=== PATIENT | male | born 1960 | race Hispanic/Latino ===

== ENCOUNTER 2019-03-27 05:50 | Day surgery (SDC) | payer MEDICAID ==
[~2019-03-27] VITALS: Ht 167.6 cm; Wt 112.9 kg
[2019-03-27] VITALS (7 sets, daily range): BP systolic 123–132; BP diastolic 65–80
[~2019-03-27 05:50] MED LIST: CABE0.5T2 PO; FURO20TA4 PO; LACT10SO32 PO; LATA7.5D OU; PANT40TA25 PO; PROP10TA10 PO; RIFA550T PO; TAMS-1 PO
[2019-03-27] MEDS ORDERED: SODIUM CHLORIDE 0.9% 1000ML 1,000 ML IV ONE (05:56)
[2019-03-27 06:38] LABS: BASOPHILS % (AUTO) 1.3 % (0.0-5.0); HEMATOCRIT 38.2 % (42-54); MEAN CORPUSCULAR HEMOGLOBIN 30.2 pg (27.0-33.0); MEAN CORPUSCULAR HGB CONC 34.4 g/dL (32.0-36.0); MEAN CORPUSCULAR VOLUME 87.8 fL (79-99); MONOCYTES % (AUTO) 7.3 % (3.0-13.0); NEUTROPHILS % (AUTO) 54.4 % (40.0-77.0); NUCLEATED RED BLOOD CELLS 0.1 % (0.0-0.19); PLATELET COUNT (AUTO) 65 K/uL (130-400); RED BLOOD CELL COUNT(AUTO) 4.34 MIL/uL (4.50-6.20); RED CELL DISTRIBUTION WIDTH 14.6 % (11.0-15.5); WHITE BLOOD COUNT (AUTO) 3.4 K/uL (4.8-10.8)
[2019-03-27 06:57] LABS: INR 1.12 (0.85-1.15); PROTHROMBIN TIME 11.7 SEC (9.6-11.6)
[2019-03-27] MEDS ORDERED: PROPOFOL 10 MG/ML 20ML VIAL IV ONE (07:43)
== END 2019-03-27 08:44 | disposition home or self-care (01) ==
LOC: ENDO 05:50 → DAH 05:50 → ENDO 08:44
PROVIDERS: ATTEND Internal Medicine
DX: I85.00 Esophageal varices without bleeding (principal); I86.4 Gastric varices; K72.90 Hepatic failure, unspecified without coma; K57.30 Diverticulosis of large intestine without perforation or abscess without bleeding; E66.9 Obesity, unspecified; K74.60 Unspecified cirrhosis of liver; H40.9 Unspecified glaucoma; K29.70 Gastritis, unspecified, without bleeding; Z86.011 Personal history of benign neoplasm of the brain; Z86.010 Personal history of colon polyps; Z79.899 Other long term (current) drug therapy; Z68.41 Body mass index [BMI] 40.0-44.9, adult
CPT/HCPCS: 36415; 43244; 85025; 85610; A4215; A4221; A4222; A4223; A4606; A4615; A4663; J2704; J7030